=== PATIENT | male | born 1980 | race Caucasian/White ===

== ENCOUNTER 2021-01-27 18:58 | Emergency (ER) | payer OTHER, SELFPAY ==
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
[2021-01-27 19:02] VITALS: BP 182/102; PULSE 116; RESP 16; TEMP 35.7; O2SAT 96
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
[2021-01-27 19:45] VITALS: BP 182/102; PULSE 116; RESP 16; TEMP 35.7; O2SAT 96
[2021-01-27 19:51] VITALS: BP 162/100; PULSE 97; O2SAT 98
== END 2021-01-27 21:14 | disposition home or self-care (01) ==
PROVIDERS: Emergency Provider Nurse Practitioner
DX: S62.392A Other fracture of third metacarpal bone, right hand, initial encounter for closed fracture (principal); S62.394A Other fracture of fourth metacarpal bone, right hand, initial encounter for closed fracture; F17.220 Nicotine dependence, chewing tobacco, uncomplicated; Y35.811A Legal intervention involving manhandling, law enforcement official injured, initial encounter
CPT/HCPCS: 29125; 73130; 99284